=== PATIENT | male | born 1970 | race Caucasian/White ===

== ENCOUNTER 2016-07-10 17:22 | Observation (INO) | payer OTHER ==
[2016-07-10] MEDS ORDERED: ONDANSETRON 4 MG/2 ML VIAL IVP PRN (19:39)
[2016-07-10] MEDS ORDERED: ZOLPIDEM TARTRATE 5 MG TAB PO PRN (19:39)
[2016-07-10] MEDS ORDERED: HYDROmorphONE/DILAUDID 6 MG/30 ML PCA IV PRN (19:40)
[2016-07-10] MEDS ORDERED: NALOXONE HCL 0.4 MG/ML INJ IVP PRN (19:40)
[2016-07-10] MEDS: D5W 1/2 NS 1,000 ML IV SCH (20:12)
[2016-07-10] MEDS: TAMSULOSIN HCL 0.4 MG CAP PO SCH (20:29)
[2016-07-10 20:52] LABS: HEMATOCRIT 42.8 % (40.0-51.0); HEMOGLOBIN 14.3 g/dL (13.7-17.5); MEAN CELL HEMOGLOBIN 29.7 pg (27.9-34.1); MEAN CELL HEMOGLOBIN CONCENTR. 33.4 g/dL (32.4-36.7); RED BLOOD CELL COUNT 4.81 10^6/uL (4.40-6.38); RED CELL DISTRIBUTION WIDTH 12.2 % (11.5-15.2)
[2016-07-10 21:05] LABS: ANION GAP 8 mEq/L (8-16); CALCIUM 8.7 mg/dL (8.5-10.4); CARBON DIOXIDE 28 mEq/l (22-31); CHLORIDE 104 mEq/L (97-110); CREATININE 1.4 mg/dL (0.7-1.3); GLOMERULAR FILTRATION RATE 54; GLUCOSE 122 mg/dL (70-100); POTASSIUM 4.2 mEq/L (3.5-5.2); SODIUM 140 mEq/L (134-144); URIC ACID 5.3 mg/dL (3.5-8.5)
[2016-07-10] MEDS ORDERED: KETOROLAC 15 MG/1 ML SDV IVP SCH (23:00)
[2016-07-11] MEDS: D5W 1/2 NS 1,000 ML IV SCH (09:21)
[2016-07-11] MEDS: TAMSULOSIN HCL 0.4 MG CAP PO SCH ×2 (09:23→22:16)
[2016-07-11] MEDS ORDERED: LIDOCAINE 2% JELLY 20 ML (UROJECT) ONE (12:30)
[2016-07-11] MEDS ORDERED: IOPAMIDOL (ISOVUE-M 300) 15 ML VIAL ONE (12:31)
[2016-07-11] MEDS ORDERED: LR 1,000 ML IV ONE (13:41)
[2016-07-11] MEDS ORDERED: LIDOCAINE 1% 5 ML SDV ID PRN (13:41)
[2016-07-11] MEDS ORDERED: PROPOFOL 200 MG/20 ML VIAL ONE ×2 (13:52→15:31)
[2016-07-11] MEDS ORDERED: fentaNYL 100 MCG/2 ML INJ ONE ×2 (13:52→15:14)
[2016-07-11] MEDS ORDERED: levOFLOXACIN 500 MG/DEXTROSE 100 ML IV ONE (14:00)
[2016-07-11] MEDS ORDERED: MIDAZOLAM 2 MG/2 ML VIAL ONE (14:00)
--- NOTE | 2016-07-11 14:31 | POSTOPPROG ---
Post Op Note Date of Operation: 07/11/16 Surgeon: Ravinder Orozco (# [id number]) Anesthesia: GET(General Endotracheal) Pre-op Diagnosis: Right ureteral stone Post-op Diagnosis: Right ureteral stone Procedure: Ureteroscopy w/ laser & basket extraction, stent placement Findings: See op note Inf/Abcess present in the surg proc area at time of surgery?: No EBL: Minimal Complications: None Specimen(s): Calculus fragment
[2016-07-11] MEDS ORDERED: OXYCODONE/APAP 5/325 TAB PO PRN (15:47)
--- NOTE | 2016-07-11 16:11 | GOP ---
[f rep st] OPERATIVE REPORT DATE OF OPERATION: 07/11/2016 SURGEON: Ravinder Orozco MD ANESTHESIA: General endotracheal. PREOPERATIVE DIAGNOSIS: Symptomatic right proximal ureteral calculus. POSTOPERATIVE DIAGNOSIS: Symptomatic right proximal ureteral calculus. PROCEDURE PERFORMED: 1. Cystourethroscopy, right retrograde pyelography. 2. Right ureteroscopy with holmium laser, calculus lithotripsy, and basket extraction. 3. Right ureteral stent placement (4.7-Montserratian Multi-Link). FINDINGS: Right proximal ureteral calculus, managed as dictated above. SPECIMENS: Ureteral calculus fragment. ESTIMATED BLOOD LOSS: Minimal. INDICATIONS: This gentleman was admitted yesterday with intractable symptoms related to a right pro ximal ureteral calculus. He presents for operative management at this time. The indications for th e procedures as well as potential risks and complications were discussed with the patient preoperati fabián. He appeared to understand, his questions were answered, and he wished to proceed. Written in formed surgical consent was thereafter obtained. DESCRIPTION OF PROCEDURE: The patient was brought to the operating room and administered general en dotracheal anesthesia. He was carefully placed in the dorsal lithotomy position on the cystoscopic table. The genital area was sterilely prepped with Betadine scrub and paint, and then draped in the usual sterile fashion. Cystoscopy was performed with a 30-degree lens through a 22-Montserratian sheath. Anterior urethra revealed no abnormalities. Posterior urethra revealed minimal BPH. Examination o f bladder revealed no abnormalities. Ureteral orifices were normal in regard to shape and position along the trigone. A 5-Montserratian open-ended ureteral catheter was used to perform retrograde pyelography on the right side . This revealed a filling defect at L4 with moderate proximal hydronephrosis and hydroureter. This was consistent with the location of the calculus seen on preoperative imaging. A 0.035 inch hydrop hilic guidewire was advanced up the right ureter until it was seen within the renal collecting syste m fluoroscopically. The entire length of the ureter distal to the calculus was dilated with 2 separ ate inflations and deflations of a 10 cm balloon by maintaining a pressure of 16 atmospheres for 4 m inutes on each occasion. The balloon, dilator, and cystoscope were then removed while keeping the g uidewire in place. Semi-rigid ureteroscopy was performed alongside the guidewire. The calculus was seen in the proximal ureter, and a 365 micron holmium laser fiber used to fragment the calculus int o fragments that appeared to be no larger than 1 to 1.5 mm. One dominant fragment was slightly larg er and was remaining, and this was removed with a Zero Tip stone basket without complication and sub mitted to Pathology for chemical analysis. The ureteroscope was removed, and the cystoscope was alex k-loaded over the guidewire. A 4.7-Montserratian Multi-Link hydrophilic ureteral stent was advanced over [facility] guidewire until it was properly positioned as seen fluoroscopically in the kidney and cystoscopic ally in the bladder. The bladder was then drained of all return, which was relatively clear. The i nstruments were removed, and 20 cc of 2% lidocaine injected transurethrally for postoperative analge sic purposes. The patient was then awakened, extubated, and transferred to his bed, then taken to [facility] recovery room. He tolerated the procedure well overall. COMPLICATIONS: None. DISPOSITION: He was transferred to the recovery room in stable condition. He will be taken back to his hospital floor room then discharged either this evening or tomorrow morning, depending on his c linical course. He will be instructed to return to my office in approximately 2 weeks for ureteral stent removal. /[id number]/MODL
[2016-07-11] MEDS: PHENAZOPYRIDINE HCL 200 MG TAB PO SCH ×2 (17:26→22:15)
--- NOTE | 2016-07-11 17:26 | SOAPPROG ---
SOAP Progress Note Assessment/Plan: Assessment: Doing well. Only issue is somewhat low O2 sats. Plan: Pt. wants to go home this evening. Will d/c if O2 sats are in low 90's after ambulation. Otherwise, will keep him here tonight. Return in 2 weeks for stent removal. Subjective: No complaints. Feels good. Objective: Vital Signs Temp Pulse Resp BP Pulse Ox 36.8 C 72 20 147/89 H 90 L 07/11/16 17:01 07/11/16 17:01 07/11/16 17:01 07/11/16 17:01 07/11/16 17:01 Laboratory Results 07/10/16 20:45 07/10/16 20:45 07/10/16 07/11/16 07/12/16 05:59 05:59 05:59 Intake Total 2400 1300 Output Total 800 285 Balance 1600 1015 Physical Exam - Physical Exam General Appearance: WD/WN, alert, no apparent distress Skin: normal color, warm/dry Neuro/Psych: alert, normal mood/affect, oriented x 3 ICD10 Worksheet Patient Problems: Problems Problem Status Onset Ureterolithiasis Acute - ICD10 Problem Qualifiers (1) Ureterolithiasis
[2016-07-12 07:50] VITALS: BP 139/83; PULSE 74; RESP 16; TEMP 98.6; O2SAT 90
[2016-07-12] MEDS: TAMSULOSIN HCL 0.4 MG CAP PO SCH (08:20)
[2016-07-12] MEDS: PHENAZOPYRIDINE HCL 200 MG TAB PO SCH (08:20)
--- NOTE | 2016-07-12 11:12 | SOAPPROG ---
SOAP Progress Note Assessment/Plan: Assessment: Doing well. Stayed overnight due to low O2 sats. Plan: D/C home w/ return in 2 weeks for stent removal. 07/12/16 11:10 Subjective: Ready to go home. No complaints. Objective: Vital Signs Temp Pulse Resp BP Pulse Ox 37.0 C 74 16 139/83 H 90 L 07/12/16 07:47 07/12/16 07:47 07/12/16 07:47 07/12/16 07:47 07/12/16 07:47 Laboratory Results 07/10/16 20:45 07/10/16 20:45 07/11/16 07/12/16 07/13/16 05:59 05:59 05:59 Intake Total 2400 2650 Output Total 800 1285 Balance 1600 1365 Physical Exam - Physical Exam General Appearance: WD/WN, alert, no apparent distress Neuro/Psych: alert, normal mood/affect ICD10 Worksheet Patient Problems: Problems Problem Status Onset Ureterolithiasis Acute - ICD10 Problem Qualifiers (1) Ureterolithiasis
== END 2016-07-12 11:00 | disposition home or self-care (01) ==
LOC: F1N 18:04
PROVIDERS: ADMIT Specialist; ATTEND Specialist
PROC: BT1D1ZZ Fluoroscopy of Right Kidney, Ureter and Bladder using Low Osmolar Contrast (ICD-10-PCS; principal; 2016-07-10)
PROC: 0TF68ZZ Fragmentation in Right Ureter, Via Natural or Artificial Opening Endoscopic (ICD-10-PCS; principal; 2016-07-10)
DX: N20.1 Calculus of ureter (principal); R09.02 Hypoxemia
CPT/HCPCS: 52356; 76001; C1726; C1758; C1769; G0378; 82365-90; C2625; J1170; J1956; J2250; J2405; J2704; J3010; Q9967

== ENCOUNTER → 2016-07-10 | Outpatient (CLI) | payer OTHER | LOC: FIMAGING 15:25 → EDSTATUS 15:27 | PROVIDERS: ATTEND Specialist | DX: R93.421 Abnormal radiologic findings on diagnostic imaging of right kidney (principal); R93.422 Abnormal radiologic findings on diagnostic imaging of left kidney ==